=== PATIENT | female | born 1975 | race Caucasian/White ===

== ENCOUNTER → 2016-09-23 | Outpatient (CLI) | payer BC | LOC: RAD 20:06 | PROVIDERS: ATTEND Nurse Practitioner Acute Care | DX: S92.532A Displaced fracture of distal phalanx of left lesser toe(s), initial encounter for closed fracture (principal); X58.XXXA Exposure to other specified factors, initial encounter ==

== ENCOUNTER 2016-11-19 02:37 | Emergency (ER) | payer BC ==
[2016-11-19 02:45] VITALS: BP 151/100
[2016-11-19] MEDS ORDERED: OXYCODONE-ACETAMINOPHEN 5-325 MG TABLET PO ONE (03:43)
--- NOTE | 2016-11-19 03:44 | ER Document Report ---
HPI - HPI Patient complains to provider of: left upper arm Onset: Just prior to arrival Onset/Duration: Sudden Quality of pain: Achy Severity: Moderate Pain Level: 3 Context: pt presents to the ED with c/o left upper arm pain. She reports she got up to get benadryl tripped, fell back and hit her arm on the counter. Denies change in LOC. Pt is right hand dominant. Associated Symptoms: None Exacerbated by: Denies Relieved by: Denies Similar symptoms previously: No Recently seen / treated by doctor: No - REPRODUCTIVE Reproductive: DENIES: : - DERM Skin Color: Normal Past Medical History - General Information source: Patient Last Menstrual Period: hyst - Social History Smoking Status: Current Every Day Smoker Cigarette use (# per day): Yes - / ppd Chew tobacco use (# tins/day): No Smoking Education Provided: Yes Frequency of alcohol use: Occasional Drug Abuse: None Occupation: [employer] [facility] [place] Lives with: Alone Family History: Reviewed & Not Pertinent Patient has suicidal ideation: No Patient has homicidal ideation: No - Past Medical History Cardiac Medical History: Denies: Hx Heart Attack, Hx Hypertension Pulmonary Medical History: Denies: Hx Asthma, Hx Bronchitis, Hx COPD, Hx Pneumonia Neurological Medical History: Reports: Hx Cerebrovascular Accident - at , Hx Migraine. Denies: Hx Seizures Renal/ Medical History: Denies: Hx Peritoneal Dialysis GI Medical History: Reports: Hx Gastroesophageal Reflux Disease, Hx Ulcer. Denies: Hx Hiatal Hernia Musculoskeltal Medical History: Reports Hx Arthritis - right knee, Reports Hx Fibromyalgia, Reports Hx Multiple Sclerosis, Reports Hx Muscular Dystrophy Psychiatric Medical History: Reports: Hx Depression Denies: Hx Bipolar Disorder, Hx Dementia, Hx Post Traumatic Stress Disorder, Hx Schizophrenia Traumatic Medical History: Denies: Hx Fractures Past Surgical History: Reports: Hx Appendectomy, Hx Section, Hx Cholecystectomy, Hx Neurologic Surgery, Hx Tubal Ligation. Denies: Hx Hysterectomy - Immunizations Hx Diphtheria, Pertussis, Tetanus Vaccination: No - 2006 Vertical Provider Document - CONSTITUTIONAL Agree With Documented VS: Yes Exam Limitations: No Limitations General Appearance: Mild Distress - WINCES WHEN ARM PALPATED - INFECTION CONTROL TRAVEL OUTSIDE OF THE [place] IN LAST 30 DAYS: No - HEENT HEENT: Atraumatic, Normocephalic - NECK Neck: Supple - RESPIRATORY Respiratory: Breath Sounds Normal, No Respiratory Distress O2 Sat by Pulse Oximetry: 96 - CARDIOVASCULAR Cardiovascular: Regular Rate - MUSCULOSKELETAL/EXTREMETIES Musculoskeletal/Extremeties: Tender - Left upper arm ttp, no obvious deformity, no swelling, good radial pulse, brisk cap refill - NEURO Level of Consciousness: Awake, Alert, Appropriate - DERM Integumentary: Warm, Dry Adult Front & Back Diagram: 1 - c/o pain Course - Re-evaluation Re-evalutation: 11/19/16 pt instructed on neg xray, plan of care- pain med, rest/ice. She verbalized understanding. - Vital Signs Vital signs: Temp Pulse Resp BP Pulse Ox 98.7 F 96 18 151/100 H 96 11/19/16 02:42 11/19/16 02:42 11/19/16 02:42 11/19/16 02:42 11/19/16 02:42 - Diagnostic Test Radiology reviewed: Image reviewed, Reports reviewed - IMPRESSION: NEGATIVE STUDY OF THE LEFT HUMERUS. NO RADIOGRAPHIC EVIDENCE OF ACUTE INJURY. Procedures - Immobilization Left Arm Pre-Proc Neuro Vasc Exam: Normal Immobilizer type: Sling Performed by: PCT Post-Proc Neuro Vasc Exam: Unchanged from pre-exam Discharge - Discharge Clinical Impression: Left upper arm pain, Elevated blood pressure reading Condition: Stable Disposition: HOME, SELF-CARE Instructions: Ice & Elevation ([facility]), Sling as Treatment ([facility]), Oral Narcotic Medication ([facility]) Additional Instructions: *You have been evaluated for arm pain, elevated blood pressure reading *Maintain the sling for the next few days for comfort *Rest/Ice/Elevate *Follow up with orthopedics for continued pain-call for an appointment *Take medication as prescribed *Monitor your blood pressure. Your blood pressure was elevated today. This may be because you were anxious, in pain or because you need medication. It is important to follow up with your primary care provider for full evaluation. *Return to ED for worsening condition, changes, needs Forms: Elevated Blood Pressure
[2016-11-19] MEDS ORDERED: HYDROCODONE/ACETAMINOPHEN 5-325 MG 6 TAB/DSPK PO PRN (03:49)
== END 2016-11-19 03:59 | disposition home or self-care (01) ==
LOC: ER 02:37
DX: M79.622 Pain in left upper arm (principal); W01.198A Fall on same level from slipping, tripping and stumbling with subsequent striking against other object, initial encounter; Y93.89 Activity, other specified; R03.0 Elevated blood-pressure reading, without diagnosis of hypertension; F17.210 Nicotine dependence, cigarettes, uncomplicated; Z71.6 Tobacco abuse counseling
CPT/HCPCS: 99283

== ENCOUNTER → 2016-12-05 | Outpatient (CLI) | payer BC ==
[2016-12-05 15:13] LABS: URINE METHADONE SCREEN NEGATIVE; URINE OPIATES LOW NEGATIVE; URINE PHENCYCLIDINE SCREEN NEGATIVE
[2016-12-05 15:30] LABS: URINE BARBITURATES SCREEN UNCONFIRMED POSITIVE
== END ==
LOC: OD 13:07
PROVIDERS: ATTEND Nurse Practitioner Acute Care
DX: S79.911A Unspecified injury of right hip, initial encounter (principal); Y99.0 Civilian activity done for income or pay
CPT/HCPCS: 80307

== ENCOUNTER 2016-12-09 17:38 | Emergency (ER) | payer BC ==
[2016-12-09] MEDS ORDERED: ONDANSETRON 4 MG TAB.RAPDIS PO ONE (17:56)
[2016-12-09] MEDS ORDERED: IBUPROFEN 800 MG TABLET PO ONE (17:56)
--- NOTE | 2016-12-09 17:56 | ER Document Report ---
ED Medical Screen (RME) - General Chief Complaint: Fall Injury Stated Complaint: FALL,RIGHT SHOULDER,KNEE PAIN Mode of Arrival: Medic Information source: Emergency Med Personnel Notes: Patient presents to the emergency department post fall EMS. Patient reports she was up on a chair. She reports she has a left broken foot, toe and was not wearing a boot. She fell and landed on her right side. Patient is complaining of severe left lower quadrant abdominal pain which started after she fell. She reports she did not hit that side. Patient reports she thinks she lost her balance and fell. Reports she is nauseated. I have greeted and performed a rapid initial assessment of this patient. A comprehensive ED assessment and evaluation of the patient, analysis of test results and completion of the medical decision making process will be conducted by additional ED providers. TRAVEL OUTSIDE OF THE [place] IN LAST 30 DAYS: No - Related Data Allergies/Adverse Reactions: metoclopramide HCl [From Reglan] Allergy (Unknown, Verified 11/19/16 02:41) prochlorperazine edisylate [From Compazine] Allergy (Unknown, Verified 11/19/16 02:41) prochlorperazine maleate [From Compazine] Allergy (Unknown, Verified 11/19/16 02 :41) promethazine HCl [From Phenergan] Allergy (Unknown, Verified 11/19/16 02:41) morphine [Morphine] Adverse Reaction (Intermediate, Verified 11/19/16 02:41) headache Past Medical History - Past Medical History Cardiac Medical History: Denies: Hx Heart Attack, Hx Hypertension Pulmonary Medical History: Denies: Hx Asthma, Hx Bronchitis, Hx COPD, Hx Pneumonia Neurological Medical History: Reports: Hx Cerebrovascular Accident - at , Hx Migraine. Denies: Hx Seizures Renal/ Medical History: Denies: Hx Peritoneal Dialysis GI Medical History: Reports: Hx Gastroesophageal Reflux Disease, Hx Ulcer. Denies: Hx Hiatal Hernia Musculoskeltal Medical History: Reports Hx Arthritis - right knee, Reports Hx Fibromyalgia, Reports Hx Multiple Sclerosis, Reports Hx Muscular Dystrophy Psychiatric Medical History: Reports: Hx Depression Denies: Hx Bipolar Disorder, Hx Dementia, Hx Post Traumatic Stress Disorder, Hx Schizophrenia Traumatic Medical History: Denies: Hx Fractures Past Surgical History: Reports: Hx Appendectomy, Hx Section, Hx Cholecystectomy, Hx Neurologic Surgery, Hx Tubal Ligation. Denies: Hx Hysterectomy - Immunizations Hx Diphtheria, Pertussis, Tetanus Vaccination: No - 2006
[2016-12-10 03:32] LABS: ABSOLUTE EOSINOPHILS # (AUTO) 0.3 10^3/uL (0.0-0.6); ABSOLUTE LYMPHOCYTES (AUTO) 2.4 10^3/uL (0.5-4.7); ABSOLUTE MONOCYTES (AUTO) 0.5 10^3/uL (0.1-1.4); ABSOLUTE NEUT (AUTO) 2.1 10^3/uL (1.7-8.2); BASOPHILS % (AUTO) 0.4 % (0-2); EOSINOPHILS % (AUTO) 5.2 % (0-6); HEMATOCRIT 42.8 % (36.0-47.0); HEMOGLOBIN 14.3 g/dL (12.0-15.5); HGB HCT DIFFERENCE 0.1; LYMPHOCYTES % (AUTO) 44.9 % (13-45); MEAN CORPUSCULAR HEMOGLOBIN 29.9 pg (27.0-33.4); MEAN CORPUSCULAR HGB CONC 33.5 g/dL (32.0-36.0); MEAN CORPUSCULAR VOLUME 89 fl (80-97); RED CELL DISTRIBUTION WIDTH 13.5 % (11.5-14.0); SEGMENTED NEUTROPHILS % (AUTO) 39.5 % (42-78); WHITE BLOOD COUNT 5.3 10^3/uL (4.0-10.5)
[2016-12-10 03:45] LABS: ALANINE AMINOTRANSFERASE 22 U/L (9-52); ALKALINE PHOSPHATASE 105 U/L (38-126); ANION GAP 11 (5-19); ASPARTATE AMINO TRANSFERASE 25 U/L (14-36); BILIRUBIN,DIRECT 0.4 mg/dL (0.0-0.4); BILIRUBIN,TOTAL 0.8 mg/dL (0.2-1.3); BLOOD UREA NITROGEN 10 mg/dL (7-20); CALCIUM 9.5 mg/dL (8.4-10.2); CARBON DIOXIDE 21 mmol/L (22-30); CHLORIDE 110 mmol/L (98-107); CREATININE RESULT 0.66 mg/dL (0.52-1.25); GLUCOSE 98 mg/dL (75-110); POTASSIUM 4.4 mmol/L (3.6-5.0); SODIUM 142.3 mmol/L (137-145); TOTAL PROTEIN 7.3 g/dL (6.3-8.2)
--- NOTE | 2016-12-10 03:53 | ER Document Report ---
ED Fall - General Mode of Arrival: Medic Information source: Emergency Med Personnel TRAVEL OUTSIDE OF THE [place] IN LAST 30 DAYS: No - HPI Patient complains to provider of: Right hip and lower abdominal pain Occurred: This afternoon Where: Home Context: Fell from height Associated symptoms: Other - see HPI Location of injury/pain: Other - see HPI <PRAFUL RITCHIE - Last Filed: 12/10/16 05:34> <ABRAN SKY - Last Filed: 12/10/16 06:54> - General Chief Complaint: Fall, R shoulder pain, L lower abdominal pain Stated Complaint: FALL,RIGHT SHOULDER,KNEE PAIN Notes: 41 year old female presents to the ED complaining of right hip and diffuse lower abdominal pain that started at this afternoon after falling from a chair. Patient states that she was trying to grab a bag of chips on top of the refrigerator while on a chair when she lost her balance and proceeded to fall onto her left side on a wooden floor. Patient states that she hit her left shoulder, elbow, wrist, and hip. Patient explains that she broke her left toe a few months ago and was not wearing her boot while on the chair. Patient denies loss of consciousness and neck pain. (PRAFUL RITCHIE) - Related data Allergies/Adverse Reactions: metoclopramide HCl [From Reglan] Allergy (Unknown, Verified 11/19/16 02:41) prochlorperazine edisylate [From Compazine] Allergy (Unknown, Verified 11/19/16 02:41) prochlorperazine maleate [From Compazine] Allergy (Unknown, Verified 11/19/16 02 :41) promethazine HCl [From Phenergan] Allergy (Unknown, Verified 11/19/16 02:41) morphine [Morphine] Adverse Reaction (Intermediate, Verified 11/19/16 02:41) headache Past Medical History - General Information source: Emergency Med Personnel - Social History Smoking Status: Current Every Day Smoker Family History: Reviewed & Not Pertinent Patient has suicidal ideation: No Patient has homicidal ideation: No Neurological Medical History: Reports: Hx Cerebrovascular Accident - at , Hx Migraine GI Medical History: Reports: Hx Gastroesophageal Reflux Disease, Hx Ulcer Musculoskeltal Medical History: Reports Hx Arthritis - right knee, Reports Hx Fibromyalgia, Reports Hx Multiple Sclerosis, Reports Hx Muscular Dystrophy Psychiatric Medical History: Reports: Hx Depression Past Surgical History: Reports: Hx Appendectomy, Hx Section, Hx Cholecystectomy, Hx Neurologic Surgery, Hx Tubal Ligation - Immunizations Hx Diphtheria, Pertussis, Tetanus Vaccination: No - 2005 <PRAFUL RITCHIE - Last Filed: 12/10/16 05:34> Review of Systems - Review of Systems Constitutional: No symptoms reported EENT: No symptoms reported Cardiovascular: No symptoms reported Respiratory: No symptoms reported Gastrointestinal: See HPI, Abdominal pain - diffuse lower abdominal pain Genitourinary: No symptoms reported Female Genitourinary: No symptoms reported Musculoskeletal: See HPI, Joint pain - right hip pain. denies: Neck pain Skin: No symptoms reported Hematologic/Lymphatic: No symptoms reported Neurological/Psychological: No symptoms reported. denies: Lost consciousness -: Yes All other systems reviewed and negative <PRAFUL RITCHIE - Last Filed: 12/10/16 05:34> Physical Exam - General General appearance: Alert In distress: None - HEENT Head: Normocephalic, Atraumatic Eyes: Normal Extraocular movements intact: Yes Pupils: PERRL - Respiratory Respiratory status: No respiratory distress Breath sounds: Normal - Cardiovascular Rhythm: Regular Heart sounds: Normal auscultation - Abdominal Inspection: Normal - Back Back: Normal - Extremities General upper extremity: Normal inspection, Normal ROM General lower extremity: Normal ROM. No: Normal inspection - see hip exam below Hip: Tender - Right hip tenderness to palpation. Mild pelvic tenderness to palpation.. No: Normal - Neurological Neuro grossly intact: Yes Cognition: Normal Orientation: AAOx4 [place] Coma Scale Eye Opening: Spontaneous Ann Coma Scale Verbal: Oriented Ann Coma Scale Motor: Obeys Commands Ann Coma Scale Total: 15 Speech: Normal - Psychological Associated symptoms: Normal affect, Normal mood - Skin Skin Temperature: Warm Skin Moisture: Dry Skin Color: Normal <PRAFUL RITCHIE - Last Filed: 12/10/16 05:34> Course - Laboratory Result Diagrams: 12/10/16 03:15 12/10/16 03:15 <PRAFUL RITCHIE - Last Filed: 12/10/16 05:34> - Laboratory Result Diagrams: 12/10/16 03:15 12/10/16 03:15 <ABRAN SKY - Last Filed: 12/10/16 06:54> - Re-evaluation Re-evalutation: 12/10/16 Patient with no evidence for injury from fall. Patient does however have a pretty nasty urinary tract infection. Patient will be treated with peridium Rocephin and discharged home with Keflex. Urine culture sent. Patient now admits to dysuria. Patient will be discharged home and is to follow-up with her doctor. Understands and agrees with plan. Grateful for care. Stable for discharge. (ABRAN SKY) - Vital Signs Vital signs: Temp Pulse Resp BP Pulse Ox 87 16 145/107 H 97 12/10/16 06:09 12/10/16 06:09 12/10/16 06:09 12/10/16 06:09 - Laboratory Laboratory results interpreted by me: 12/10/16 12/10/16 12/10/16 03:15 03:15 04:30 Seg Neutrophils % 39.5 L Chloride 110 H Carbon Dioxide 21 L Urine Protein 30 H Urine Ketones TRACE H Urine Nitrite POSITIVE H Urine Bilirubin SMALL H Ur Leukocyte Esterase MODERATE H Discharge <PRAFUL RITCHIE - Last Filed: 12/10/16 05:34> <ABRAN SKY - Last Filed: 12/10/16 06:54> - Discharge Clinical Impression: Fall Qualifiers: Encounter type: initial encounter Qualified Code(s): W19.XXXA - Unspecified fall, initial encounter Hip pain Qualifiers: Laterality: right Qualified Code(s): M25.551 - Pain in right hip UTI (urinary tract infection) Qualifiers: Urinary tract infection type: site unspecified Hematuria presence: without hematuria Qualified Code(s): N39.0 - Urinary tract infection, site not specified Condition: Stable Disposition: HOME, SELF-CARE Instructions: Abdominal Pain ([facility]), Contusion ([facility]), Ice Packs ([facility]), Urinary Tract Infection ([facility]) Prescriptions: Cephalexin Monohydrate [Keflex 500 mg Capsule] 500 mg PO QID #28 capsule Phenazopyridine HCl [Pyridium 100 Mg Tablet] 100 mg PO TID 3 Days Scribe Attestation: 12/10/16 06:54 I personally performed the services described in the documentation, reviewed and edited the documentation which was dictated to the scribe in my presence, and it accurately records my words and actions. (ABRAN SKY) Scribe Documentation - Scribe Written by Scribe:: Gonzalo Poole, 12/10/2016 0431 acting as scribe for :: Maira <PRAFUL RITCHIE - Last Filed: 12/10/16 05:34>
[2016-12-10] MEDS ORDERED: ONDANSETRON 4 MG TAB.RAPDIS PO ONE (04:22)
[2016-12-10] MEDS ORDERED: OXYCODONE-ACETAMINOPHEN 5-325 MG TABLET PO ONE (04:22)
[2016-12-10] MEDS ORDERED: HYDROCODONE/ACETAMINOPHEN 5-325 MG 6 TAB/DSPK PO PRN (05:07)
[2016-12-10] MEDS ORDERED: ONDANSETRON ODT 4 MG TAB (6 TAB/DSPK) PO PRN (05:11)
[2016-12-10 05:21] LABS: APPEARANCE,URINE SLIGHTLY-CLOUDY; BILIRUBIN,URINE SMALL (NEGATIVE); GLUCOSE, URINE NEGATIVE (NEGATIVE); KETONES,URINE TRACE mg/dL (NEGATIVE); LEUKOCYTE ESTERASE,URINE MODERATE (NEGATIVE); NITRITE,URINE POSITIVE (NEGATIVE); PROTEIN,URINE 30 mg/dL (NEGATIVE); URINE SPECIFIC GRAVITY 1.024; UROBILINOGEN,URINE NEGATIVE mg/dL (<2.0)
[2016-12-10] MEDS ORDERED: LIDOCAINE 1% INJ-PF (10 MG/ML) 30 ML SDV INJ ONE (05:29)
[2016-12-10] MEDS ORDERED: CEFTRIAXONE INJ 1000 MG VIAL IM ONE (05:29)
[2016-12-10] MEDS ORDERED: PHENAZOPYRIDINE HCL 200 MG TABLET PO ONE (05:30)
[2016-12-10 06:10] VITALS: BP 145/107
== END 2016-12-10 06:09 | disposition home or self-care (01) ==
LOC: ER 17:38
DX: M25.551 Pain in right hip (principal); N39.0 Urinary tract infection, site not specified; M25.511 Pain in right shoulder; R10.30 Lower abdominal pain, unspecified; W07.XXXA Fall from chair, initial encounter; Y92.009 Unspecified place in unspecified non-institutional (private) residence as the place of occurrence of the external cause; F17.200 Nicotine dependence, unspecified, uncomplicated; Z86.73 Personal history of transient ischemic attack (TIA), and cerebral infarction without residual deficits; K21.9 Gastro-esophageal reflux disease without esophagitis; M79.7 Fibromyalgia; Z90.49 Acquired absence of other specified parts of digestive tract; Z98.51 Tubal ligation status
CPT/HCPCS: 99284; 96372; 36415; 87086; 85025; 87088; 80053; 81001; 87186; 73502; S0119 ×2; J3490 ×2; J0696

== ENCOUNTER 2017-01-09 08:10 | Emergency (ER) | payer BC ==
[2017-01-09] MEDS ORDERED: HALOPERIDOL LACTATE INJ 5 MG/1 ML VIAL IV ONE ×2 (08:49→11:17)
[2017-01-09] MEDS ORDERED: NORMAL SALINE 1000 ML 1,000 ML IV ONE (08:49)
[2017-01-09] MEDS ORDERED: DEXAMETHASONE SOD PHOS INJ 10 MG/1 ML VIAL IV ONE (08:50)
[2017-01-09] MEDS ORDERED: KETOROLAC TROMETHAMINE INJ/PF 30 MG/1 ML SDV IV ONE (11:17)
--- NOTE | 2017-01-09 11:58 | ER Document Report ---
ED Headache - General Chief Complaint: Headache Stated Complaint: HEADACHE TRAVEL OUTSIDE OF THE [place] IN LAST 30 DAYS: No - HPI Notes: Patient coming in complaining of a migraine headache. Patient states that she used to see a neurologist however they were not helping her therefore she stopped seen neurology a long time ago. 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 Patient states headache normal for her or change in characteristic. Patient denies any recent head trauma denies any travel denies any antibiotics. Patient is alert oriented sitting up moving all 4 extremities dissipating in the nursing assessment upon my entrance into the examination room. - Related Data Allergies/Adverse Reactions: metoclopramide HCl [From Reglan] Allergy (Unknown, Verified 01/09/17 08:11) prochlorperazine edisylate [From Compazine] Allergy (Unknown, Verified 01/09/17 08:11) prochlorperazine maleate [From Compazine] Allergy (Unknown, Verified 01/09/17 08 :11) promethazine HCl [From Phenergan] Allergy (Unknown, Verified 01/09/17 08:11) morphine [Morphine] Adverse Reaction (Intermediate, Verified 01/09/17 08:11) headache Past Medical History - Social History Smoking Status: Current Every Day Smoker Chew tobacco use (# tins/day): No Frequency of alcohol use: Rare Drug Abuse: None Family History: Reviewed & Not Pertinent Patient has suicidal ideation: No Patient has homicidal ideation: No - Past Medical History Cardiac Medical History: Denies: Hx Heart Attack, Hx Hypertension Pulmonary Medical History: Denies: Hx Asthma, Hx Bronchitis, Hx COPD, Hx Pneumonia Neurological Medical History: Reports: Hx Cerebrovascular Accident - at , Hx Migraine. Denies: Hx Seizures Renal/ Medical History: Denies: Hx Peritoneal Dialysis GI Medical History: Reports: Hx Gastroesophageal Reflux Disease, Hx Ulcer. Denies: Hx Hiatal Hernia Musculoskeltal Medical History: Reports Hx Arthritis - right knee, Reports Hx Fibromyalgia, Reports Hx Multiple Sclerosis, Reports Hx Muscular Dystrophy Psychiatric Medical History: Reports: Hx Depression Denies: Hx Bipolar Disorder, Hx Dementia, Hx Post Traumatic Stress Disorder, Hx Schizophrenia Traumatic Medical History: Denies: Hx Fractures Past Surgical History: Reports: Hx Appendectomy, Hx Section, Hx Cholecystectomy, Hx Neurologic Surgery, Hx Tubal Ligation. Denies: Hx Hysterectomy - Immunizations Hx Diphtheria, Pertussis, Tetanus Vaccination: No - 2005 Review of Systems - Review of Systems Constitutional: No symptoms reported EENT: No symptoms reported Cardiovascular: No symptoms reported Respiratory: No symptoms reported Gastrointestinal: No symptoms reported Genitourinary: No symptoms reported Female Genitourinary: No symptoms reported Musculoskeletal: No symptoms reported Skin: No symptoms reported Hematologic/Lymphatic: No symptoms reported Neurological/Psychological: Headaches Physical Exam - Vital signs Vitals: Temp Pulse Resp BP Pulse Ox 97.8 F 108 H 16 139/99 H 100 01/09/17 08:12 01/09/17 08:12 01/09/17 08:12 01/09/17 08:12 01/09/17 08:12 Interpretation: Normal - General General appearance: Appears well, Alert - HEENT Head: Normocephalic, Atraumatic Eyes: Normal Pupils: PERRL - Respiratory Respiratory status: No respiratory distress Chest status: Nontender Breath sounds: Normal Chest palpation: Normal - Cardiovascular Rhythm: Regular Heart sounds: Normal auscultation Murmur: No - Abdominal Inspection: Normal Distension: No distension Bowel sounds: Normal Tenderness: Nontender Organomegaly: No organomegaly - Back Back: Normal, Nontender - Extremities General upper extremity: Normal inspection, Nontender, Normal color, Normal ROM , Normal temperature General lower extremity: Normal inspection, Nontender, Normal color, Normal ROM , Normal temperature, Normal weight bearing. No: Cristine's sign - Neurological Neuro grossly intact: Yes Cognition: Normal Orientation: AAOx4 [place] Coma Scale Eye Opening: Spontaneous [place] Coma Scale Verbal: Oriented Ann Coma Scale Motor: Obeys Commands [place] Coma Scale Total: 15 Speech: Normal Motor strength normal: LUE, RUE, LLE, RLE Sensory: Normal - Psychological Associated symptoms: Normal affect, Normal mood - Skin Skin Temperature: Warm Skin Moisture: Dry Skin Color: Normal Course - Re-evaluation Re-evalutation: 01/09/17 14:49 The patient presents with headache without signs of [employer] bleed, stroke, infection , or other serious etiology. The patient is neurologically intact. Given the extremely low risk of these diagnoses further testing and evaluation for these possibilities does not appear to be indicated at this time. The patient has been instructed to return if the symptoms worsen or change in any way.. Upon evaluation patient sleeping. Patient will be discharged patient seen to received good relief with Haldol Decadron - Vital Signs Vital signs: Temp Pulse Resp BP Pulse Ox 97.7 F 63 18 108/69 99 01/09/17 12:59 01/09/17 12:59 01/09/17 12:59 01/09/17 12:59 01/09/17 12:59 Discharge - Discharge Clinical Impression: Migraine Qualifiers: Migraine type: unspecified Status migrainosus presence: without status migrainosus Intractability: not intractable Qualified Code(s): G43.909 - Migraine, unspecified, not intractable, without status migrainosus Condition: Good Disposition: HOME, SELF-CARE Instructions: Migraine Headache ([facility]), Neurologist Additional Instructions: I would highly recommend following up with a neurologist. Return to the ER if symptoms worsen. Please drink plenty of water Prescriptions: Ondansetron [Zofran Odt 4 mg Tablet] 1 - 2 tab PO Q4HP PRN #10 tab.rapdis PRN Reason: Referrals: MONROE RITCHIE MD [Primary Care Provider] - Follow up in 3-5 days
[2017-01-09 13:05] VITALS: BP 108/69
== END 2017-01-09 13:05 | disposition home or self-care (01) ==
LOC: ER 08:10
DX: G43.909 Migraine, unspecified, not intractable, without status migrainosus (principal); F17.200 Nicotine dependence, unspecified, uncomplicated
CPT/HCPCS: 96376; 99283; 96361; 96374; 96375; J1630; J1885; J7030; J1100

== ENCOUNTER 2017-01-29 21:20 | Emergency (ER) | payer BC ==
[2017-01-30] MEDS ORDERED: OXYCODONE-ACETAMINOPHEN 5-325 MG TABLET PO ONE (04:10)
--- NOTE | 2017-01-30 04:16 | ER Document Report ---
ED Fall - General Chief Complaint: Fall Injury Stated Complaint: FALL/RIGHT SIDE PAIN Time Seen by Provider: 01/30/17 04:01 Notes: Patient is a 41-year-old female who comes emergency department for chief complaint of fall injury, she states that she stubbed her toe and then fell into a garden bucket this afternoon. Patient states that she hurts in her right hip/groin area, her right elbow, and her right shoulder. She denies head or neck injury. She denies loss of consciousness. She denies any abdominal, flank, chest pain. She is not on a blood thinner. TRAVEL OUTSIDE OF THE [place] IN LAST 30 DAYS: No - Related data Allergies/Adverse Reactions: metoclopramide HCl [From Reglan] Allergy (Unknown, Verified 01/30/17 05:09) prochlorperazine edisylate [From Compazine] Allergy (Unknown, Verified 01/30/17 05:09) prochlorperazine maleate [From Compazine] Allergy (Unknown, Verified 01/30/17 05 :09) promethazine HCl [From Phenergan] Allergy (Unknown, Verified 01/30/17 05:09) morphine [Morphine] Adverse Reaction (Intermediate, Verified 01/30/17 05:09) headache Past Medical History - General Information source: Patient - Social History Smoking Status: Never Smoker Drug Abuse: None Lives with: Family Family History: Reviewed & Not Pertinent Patient has suicidal ideation: No Patient has homicidal ideation: No - Past Medical History Cardiac Medical History: Denies: Hx Heart Attack, Hx Hypertension Pulmonary Medical History: Denies: Hx Asthma, Hx Bronchitis, Hx COPD, Hx Pneumonia Neurological Medical History: Reports: Hx Cerebrovascular Accident - at , Hx Migraine. Denies: Hx Seizures Renal/ Medical History: Denies: Hx Peritoneal Dialysis GI Medical History: Reports: Hx Gastroesophageal Reflux Disease, Hx Ulcer. Denies: Hx Hiatal Hernia Musculoskeltal Medical History: Reports Hx Arthritis - right knee, Reports Hx Fibromyalgia, Reports Hx Multiple Sclerosis, Reports Hx Muscular Dystrophy Psychiatric Medical History: Reports: Hx Depression Denies: Hx Bipolar Disorder, Hx Dementia, Hx Post Traumatic Stress Disorder, Hx Schizophrenia Traumatic Medical History: Denies: Hx Fractures Past Surgical History: Reports: Hx Appendectomy, Hx Section, Hx Cholecystectomy, Hx Neurologic Surgery, Hx Tubal Ligation. Denies: Hx Hysterectomy - Immunizations Hx Diphtheria, Pertussis, Tetanus Vaccination: No - 2005 Review of Systems - Review of Systems Constitutional: No symptoms reported EENT: No symptoms reported Cardiovascular: No symptoms reported Respiratory: No symptoms reported Gastrointestinal: No symptoms reported Genitourinary: No symptoms reported Female Genitourinary: No symptoms reported Musculoskeletal: See HPI Skin: No symptoms reported Hematologic/Lymphatic: No symptoms reported Neurological/Psychological: No symptoms reported Physical Exam - Vital signs Vitals: Temp Pulse Resp BP Pulse Ox 98.9 F 86 18 137/103 H 99 01/29/17 21:26 01/29/17 21:26 01/29/17 21:26 01/29/17 21:01/29/17 21:26 Interpretation: Normal - General General appearance: Appears well In distress: None - HEENT Head: Normocephalic, Atraumatic Eyes: Normal Conjunctiva: Normal Eyelashes: Normal Pupils: PERRL Mucous membranes: Normal Pharynx: Normal Neck: Normal - Respiratory Respiratory status: No respiratory distress Chest status: Nontender Breath sounds: Normal. No: Decreased air movement, Wheezing Chest palpation: Normal - Cardiovascular Rhythm: Regular Heart sounds: Normal auscultation Murmur: No - Abdominal Inspection: Normal Distension: No distension Bowel sounds: Normal Tenderness: Nontender. No: Tender, Guarding Organomegaly: No organomegaly - Back Back: Normal, Nontender. No: Tender - Completely unremarkable back exam with no evidence of injury, no midline tenderness, normal distal neurovascular exam - Extremities General upper extremity: Other - General pain with palpation over the right shoulder, full range of motion. General pain with palpation with small scrapes over the elbow, full range of motion, normal upper extremity exam otherwise General lower extremity: Other - Tenderness over the right femoral bursa area and extending over the right anterior thigh, full range of motion of the hip, normal lower extremity exam otherwise. No: Cristine's sign - Neurological Neuro grossly intact: Yes Cognition: Normal Orientation: AAOx4 [place] Coma Scale Eye Opening: Spontaneous Ann Coma Scale Verbal: Oriented Ann Coma Scale Motor: Obeys Commands Ann Coma Scale Total: 15 Speech: Normal Motor strength normal: LUE, RUE, LLE, RLE Sensory: Normal - Psychological Associated symptoms: Normal affect, Normal mood - Skin Skin Temperature: Warm Skin Moisture: Dry Skin Color: Normal Course - Re-evaluation Re-evalutation: There is a small scraped area over the right elbow with superficial bruising, no open skin or bleeding, normal range of motion. Shoulder and hip exam are unremarkable. Full range of motion of all extremities. Patient able to sit in style without any discomfort. X-rays reviewed and all are negative for any acute abnormality. Treating for muscular strain/contusion, discussed primary care follow-up, discussed return precautions, patient states understanding and agreement. - Vital Signs Vital signs: Temp Pulse Resp BP Pulse Ox 97.7 F 76 14 129/86 H 97 01/30/17 04:50 01/30/17 04:50 01/30/17 04:50 01/30/17 04:50 01/30/17 04:50 Discharge - Discharge Clinical Impression: Right hip pain, Right elbow pain Fall Qualifiers: Encounter type: initial encounter Qualified Code(s): W19.XXXA - Unspecified fall, initial encounter Right shoulder pain Qualifiers: Chronicity: acute Qualified Code(s): M25.511 - Pain in right shoulder Elbow abrasion Qualifiers: Encounter type: initial encounter Laterality: right Qualified Code(s): S50.311A - Abrasion of right elbow, initial encounter Condition: Stable Disposition: HOME, SELF-CARE Additional Instructions: X-ray imaging shows no fractures, evaluation is consistent with soft tissue injury and sprain apply ice to her shoulder, elbow, and hip 3-4 times daily for 10-15 minutes if possible. Rest. Take the naproxen and Robaxin as directed, take the Ultracet if needed. Follow-up with primary care. Return to the emergency department for any concerning symptoms. Prescriptions: Methocarbamol [Robaxin 750 mg Tablet] 750 mg PO Q6 #20 tablet Naproxen 500 mg PO BID #20 tablet Tramadol HCl/Acetaminophen [Ultracet 37.5 mg/325 mg Tablet] 1 each PO ASDIR PRN #20 tablet PRN Reason: Forms: Return to Work
[2017-01-30 04:58] VITALS: BP 129/86
== END 2017-01-30 04:55 | disposition home or self-care (01) ==
LOC: ER 21:20
DX: S50.311A Abrasion of right elbow, initial encounter (principal); M25.551 Pain in right hip; M25.511 Pain in right shoulder; W18.30XA Fall on same level, unspecified, initial encounter; Z88.6 Allergy status to analgesic agent; Z86.73 Personal history of transient ischemic attack (TIA), and cerebral infarction without residual deficits; K21.9 Gastro-esophageal reflux disease without esophagitis; Z90.49 Acquired absence of other specified parts of digestive tract; Z98.51 Tubal ligation status
CPT/HCPCS: 99284

== ENCOUNTER 2017-02-07 18:04 | Emergency (ER) | payer BC ==
[2017-02-07] MEDS ORDERED: OXYCODONE-ACETAMINOPHEN 5-325 MG TABLET PO ONE (18:28)
[2017-02-07] MEDS ORDERED: KETOROLAC TROMETHAMINE 60 MG/2 ML SDV IM ONE (18:31)
--- NOTE | 2017-02-07 18:31 | ER Document Report ---
ED Medical Screen (RME) - General Chief Complaint: Urinary Problem Stated Complaint: POSSIBLE UTI Time Seen by Provider: 02/07/17 18:24 Mode of Arrival: Ambulatory Information source: Patient TRAVEL OUTSIDE OF THE [place] IN LAST 30 DAYS: No - HPI Patient complains to provider of: Dysuria, odorous urine, flank pain Onset: Other - 2 Months Onset/Duration: Waxing and waning Quality of pain: Achy, Burning, Sharp, Stabbing Severity: Moderate Pain Level: 4 Associated Symptoms: Dysuria Exacerbated by: Denies Relieved by: Denies Similar symptoms previously: Yes Recently seen / treated by doctor: Yes Notes: 02/07/17 18:30 Patient is a 41-year-old female who presents to the emergency room complaining of persistent dysuria with odorous urine and now flank pain symptoms have been going on for the past 2 months and worsening, she has been on for 5 different courses of antibiotics, today she developed lip swelling, she is currently taking Bactrim, she is concerned that she developed an allergic reaction, she also had a similar reaction when taking Macrobid - Related Data Allergies/Adverse Reactions: metoclopramide HCl [From Reglan] Allergy (Unknown, Verified 02/07/17 18:17) prochlorperazine edisylate [From Compazine] Allergy (Unknown, Verified 02/07/17 18:17) prochlorperazine maleate [From Compazine] Allergy (Unknown, Verified 02/07/17 18 :17) promethazine HCl [From Phenergan] Allergy (Unknown, Verified 02/07/17 18:17) morphine [Morphine] Adverse Reaction (Intermediate, Verified 02/07/17 18:17) headache Past Medical History - Social History Chew tobacco use (# tins/day): No Frequency of alcohol use: None Drug Abuse: None - Past Medical History Cardiac Medical History: Denies: Hx Heart Attack, Hx Hypertension Pulmonary Medical History: Denies: Hx Asthma, Hx Bronchitis, Hx COPD, Hx Pneumonia Neurological Medical History: Reports: Hx Cerebrovascular Accident - at , Hx Migraine. Denies: Hx Seizures Renal/ Medical History: Denies: Hx Peritoneal Dialysis GI Medical History: Reports: Hx Gastroesophageal Reflux Disease, Hx Ulcer. Denies: Hx Hiatal Hernia Musculoskeltal Medical History: Reports Hx Arthritis - right knee, Reports Hx Fibromyalgia, Reports Hx Multiple Sclerosis, Reports Hx Muscular Dystrophy Psychiatric Medical History: Reports: Hx Depression Denies: Hx Bipolar Disorder, Hx Dementia, Hx Post Traumatic Stress Disorder, Hx Schizophrenia Traumatic Medical History: Denies: Hx Fractures Past Surgical History: Reports: Hx Appendectomy, Hx Section, Hx Cholecystectomy, Hx Hysterectomy, Hx Neurologic Surgery, Hx Tubal Ligation - Immunizations Hx Diphtheria, Pertussis, Tetanus Vaccination: - 2005 Physical Exam - Vital signs Vitals: Temp Pulse Resp BP Pulse Ox 98.3 F 102 H 18 142/92 H 98 02/07/17 18:17 02/07/17 18:17 02/07/17 18:17 02/07/17 18:17 02/07/17 18:17 Course - Vital Signs Vital signs: Temp Pulse Resp BP Pulse Ox 98.3 F 102 H 18 142/92 H 98 02/07/17 18:17 02/07/17 18:17 02/07/17 18:17 02/07/17 18:17 02/07/17 18:17
[2017-02-07 19:03] LABS: ABSOLUTE EOSINOPHILS # (AUTO) 0.5 10^3/uL (0.0-0.6); ABSOLUTE LYMPHOCYTES (AUTO) 1.8 10^3/uL (0.5-4.7); ABSOLUTE MONOCYTES (AUTO) 0.4 10^3/uL (0.1-1.4); ABSOLUTE NEUT (AUTO) 2.2 10^3/uL (1.7-8.2); BASOPHILS % (AUTO) 0.5 % (0-2); EOSINOPHILS % (AUTO) 10.1 % (0-6); HEMOGLOBIN 13.6 g/dL (12.0-15.5); HGB HCT DIFFERENCE -0.2; LYMPHOCYTES % (AUTO) 37.2 % (13-45); MEAN CORPUSCULAR HEMOGLOBIN 30.5 pg (27.0-33.4); MEAN CORPUSCULAR HGB CONC 33.1 g/dL (32.0-36.0); MEAN CORPUSCULAR VOLUME 92 fl (80-97); MONOCYTES % (AUTO) 8.3 % (3-13); RED BLOOD COUNT 4.45 10^6/uL (3.72-5.28); RED CELL DISTRIBUTION WIDTH 14.2 % (11.5-14.0); SEGMENTED NEUTROPHILS % (AUTO) 43.9 % (42-78); WHITE BLOOD COUNT 4.9 10^3/uL (4.0-10.5)
[2017-02-07 19:16] LABS: ALANINE AMINOTRANSFERASE 28 U/L (9-52); ALBUMIN 3.9 g/dL (3.5-5.0); ALKALINE PHOSPHATASE 112 U/L (38-126); ANION GAP 10 (5-19); ASPARTATE AMINO TRANSFERASE 29 U/L (14-36); BILIRUBIN,DIRECT 0.5 mg/dL (0.0-0.4); BILIRUBIN,TOTAL 0.5 mg/dL (0.2-1.3); BLOOD UREA NITROGEN 11 mg/dL (7-20); CALCIUM 9.7 mg/dL (8.4-10.2); CARBON DIOXIDE 21 mmol/L (22-30); CHLORIDE 111 mmol/L (98-107); CREATININE RESULT 0.95 mg/dL (0.52-1.25); GLUCOSE 113 mg/dL (75-110); LIPASE 183.6 U/L (23-300); POTASSIUM 4.5 mmol/L (3.6-5.0); SODIUM 141.6 mmol/L (137-145); TOTAL PROTEIN 6.9 g/dL (6.3-8.2)
[2017-02-07 19:22] LABS: APPEARANCE,URINE CLOUDY; BILIRUBIN,URINE NEGATIVE (NEGATIVE); GLUCOSE, URINE NEGATIVE (NEGATIVE); KETONES,URINE NEGATIVE (NEGATIVE); LEUKOCYTE ESTERASE,URINE MODERATE (NEGATIVE); NITRITE,URINE POSITIVE (NEGATIVE); PROTEIN,URINE NEGATIVE (NEGATIVE); URINE SPECIFIC GRAVITY 1.014; UROBILINOGEN,URINE NEGATIVE mg/dL (<2.0)
[2017-02-07] MEDS ORDERED: ONDANSETRON 4 MG TAB.RAPDIS PO ONE (19:26)
[2017-02-07] MEDS ORDERED: MORPHINE SULFATE IR 15 MG TABLET PO ONE (19:26)
--- NOTE | 2017-02-07 19:33 | RADIOLOGY REPORT (SQ) ---
EXAM DESCRIPTION: CT LTD RENAL STONE PROTOCOL ON COMPLETED DATE/TIME: 02/07/2017 7:07 pm REASON FOR STUDY: flank pain COMPARISON: None. TECHNIQUE: CT scan of the abdomen and pelvis performed without intravenous or oral contrast. Images reviewed with lung, soft tissue, and bone windows. Reconstructed coronal and sagittal MPR images revi ewed. All images stored on PACS. All CT scanners at this facility use dose modulation, iterative reconstruction, and/or weight based d osing when appropriate to reduce radiation dose to as low as reasonably achievable (ALARA). [facility]: Dose Right [facility]: CareDose [facility]: Dose Right [facility]: Teradose 4D [facility]: [employer] RADIATION DOSE: 8.41mGy. LIMITATIONS: None. FINDINGS: LOWER CHEST: No significant findings. No nodules or infiltrates. NON-CONTRASTED LIVER, SPLEEN, ADRENALS: Evaluation limited by lack of IV contrast. No identified sign ificant masses. PANCREAS: No masses. No peripancreatic inflammatory changes. GALLBLADDER: Surgically absent. RIGHT KIDNEY AND URETER: No suspicious masses. Assessment limited by lack of IV contrast. No signif icant calcifications. No hydronephrosis or hydroureter. LEFT KIDNEY AND URETER: No suspicious masses. Assessment limited by lack of IV contrast. No signifi cant calcifications. No hydronephrosis or hydroureter. AORTA AND RETROPERITONEUM: No aneurysm. No retroperitoneal masses or adenopathy. BOWEL AND PERITONEAL CAVITY: No obvious masses or inflammatory changes. No free fluid. APPENDIX: Surgically absent. PELVIS, BLADDER, AND ABDOMINAL WALL:Status post hysterectomy. No abnormal masses. No free fluid. Cale dder normal. BONES: No significant findings. OTHER: No other significant finding. IMPRESSION: NO SIGNIFICANT OR ACUTE PROCESS IN THE ABDOMEN OR PELVIS. TECHNICAL DOCUMENTATION: JOB ID: [id number] Quality ID # [id number]: Final reports with documentation of one or more dose reduction techniques (e.g., Au tomated exposure control, adjustment of the mA and/or kV according to patient size, use of iterative reconstruction technique) 2010 [employer]- All Rights Reserved
[2017-02-07] MEDS ORDERED: LIDOCAINE 1% INJ-PF (10 MG/ML) 30 ML SDV INFIL ONE (19:41)
[2017-02-07] MEDS ORDERED: CEFTRIAXONE INJ 1000 MG VIAL IM ONE (19:41)
[2017-02-07] MEDS ORDERED: HYDROMORPHONE HCL INJ/PF 2 MG/ML AMPULE IM ONE (19:55)
--- NOTE | 2017-02-07 19:56 | ER Document Report ---
ED General - General Chief Complaint: Urinary Problem Stated Complaint: POSSIBLE UTI Time Seen by Provider: 02/07/17 18:24 Mode of Arrival: Ambulatory Notes: Patient is a 41-year-old female who presents with suprapubic abdominal pain as well as right flank pain that has been ongoing for the past 2 months. Patient states that she was diagnosed with a urinary tract infection back in November and has had 3 different rounds of antibiotics without resolution of her symptoms. Does describe pain in the affected areas as a dull, constant, aching pain. Nothing improves or worsens her pain. She denies any associated fever, nausea or vomiting. No history of similar symptoms in the past. TRAVEL OUTSIDE OF THE [place] IN LAST 30 DAYS: No - Related Data Allergies/Adverse Reactions: metoclopramide HCl [From Reglan] Allergy (Unknown, Verified 02/07/17 18:17) prochlorperazine edisylate [From Compazine] Allergy (Unknown, Verified 02/07/17 18:17) prochlorperazine maleate [From Compazine] Allergy (Unknown, Verified 02/07/17 18 :17) promethazine HCl [From Phenergan] Allergy (Unknown, Verified 02/07/17 18:17) Past Medical History - General Information source: Patient - Social History Smoking Status: Never Smoker Chew tobacco use (# tins/day): No Frequency of alcohol use: None Drug Abuse: None Lives with: Spouse/Significant other Family History: Reviewed & Not Pertinent Patient has suicidal ideation: No Patient has homicidal ideation: No - Past Medical History Cardiac Medical History: Denies: Hx Heart Attack, Hx Hypertension Pulmonary Medical History: Denies: Hx Asthma, Hx Bronchitis, Hx COPD, Hx Pneumonia Neurological Medical History: Reports: Hx Cerebrovascular Accident - at , Hx Migraine. Denies: Hx Seizures Renal/ Medical History: Denies: Hx Peritoneal Dialysis GI Medical History: Reports: Hx Gastroesophageal Reflux Disease, Hx Ulcer. Denies: Hx Hiatal Hernia Musculoskeltal Medical History: Reports Hx Arthritis - right knee, Reports Hx Fibromyalgia, Reports Hx Multiple Sclerosis, Reports Hx Muscular Dystrophy Psychiatric Medical History: Reports: Hx Depression Denies: Hx Bipolar Disorder, Hx Dementia, Hx Post Traumatic Stress Disorder, Hx Schizophrenia Traumatic Medical History: Denies: Hx Fractures Past Surgical History: Reports: Hx Appendectomy, Hx Section, Hx Cholecystectomy, Hx Hysterectomy, Hx Neurologic Surgery, Hx Tubal Ligation - Immunizations Hx Diphtheria, Pertussis, Tetanus Vaccination: No - 2005 Review of Systems - Review of Systems Notes: Constitutional: Negative for fever. HENT: Negative for sore throat. Eyes: Negative for visual changes. Cardiovascular: Negative for chest pain. Respiratory: Negative for shortness of breath. Gastrointestinal: Positive for suprapubic abdominal pain and right flank pain. Genitourinary: Positive for dysuria. Musculoskeletal: Negative for back pain. Skin: Negative for rash. Neurological: Negative for headaches, weakness or numbness. 10 point ROS negative except as marked above and in HPI. Physical Exam - Vital signs Vitals: Temp Pulse Resp BP Pulse Ox 98.3 F 102 H 18 142/92 H 98 02/07/17 18:17 02/07/17 18:17 02/07/17 18:17 02/07/17 18:17 02/07/17 18:17 Interpretation: Hypertensive, Tachycardic Notes: PHYSICAL EXAMINATION: GENERAL: Well-appearing, well-nourished and in no acute distress. HEAD: Atraumatic, normocephalic. EYES: Pupils equal round and reactive to light, extraocular movements intact, sclera anicteric, conjunctiva are normal. ENT: nares patent, oropharynx clear without exudates. Moist mucous membranes. NECK: Normal range of motion, supple without lymphadenopathy LUNGS: Breath sounds clear to auscultation bilaterally and equal. No wheezes rales or rhonchi. HEART: Regular rate and rhythm without murmurs ABDOMEN: Soft, suprapubic tenderness on palpation, normoactive bowel sounds. No guarding, no rebound. No masses appreciated. Right CVA tenderness. EXTREMITIES: Normal range of motion, no pitting or edema. No cyanosis. NEUROLOGICAL: No focal neurological deficits. Moves all extremities spontaneously and on command. PSYCH: Normal mood, normal affect. SKIN: Warm, Dry, normal turgor, no rashes or lesions noted. Course - Re-evaluation Re-evalutation: 02/07/17 19:53 Presentation is most consistent with acute pyelonephritis. Laboratories do demonstrate a large amount of white blood cells in the urine as well as bacteria. Patient has had constitutional symptoms at home as well as a fever. CVA tenderness is present on exam. The remainder laboratories are relatively unremarkable without evidence of renal dysfunction. I do not suspect an acute appendicitis, biliary pathology, pancreatitis, intra-abdominal abscess, or tubo- ovarian abscess based on history and examination. Patient has been given a dose of IM ceftriaxone. Patient is able to tolerate oral intake without difficulty. Will be discharged home on 7 day course of cephalexin. A urine culture has been sent. Strict return precautions and follow-up recommendations have been discussed at length. - Vital Signs Vital signs: Temp Pulse Resp BP Pulse Ox 98.3 F 72 20 127/82 H 97 02/07/17 20:07 02/07/17 20:07 02/07/17 20:07 02/07/17 20:07 02/07/17 20:07 - Laboratory Result Diagrams: 02/07/17 18:50 02/07/17 18:50 Laboratory results interpreted by me: 02/07/17 02/07/17 02/07/17 18:50 18:50 18:58 RDW 14.2 H Eosinophils % 10.1 H Chloride 111 H Carbon Dioxide 21 L Glucose 113 H Direct Bilirubin 0.5 H Urine Nitrite POSITIVE H Ur Leukocyte Esterase MODERATE H - Diagnostic Test Radiology reviewed: Reports reviewed Discharge - Discharge Clinical Impression: Pyelonephritis Condition: Good Disposition: HOME, SELF-CARE Additional Instructions: You have been diagnosed with a condition called pyelonephritis which is an infection involving your kidneys and bladder. You have been given a dose of antibiotics here in the emergency department to help begin to treat this infection. Your also being sent home on antibiotics. Please start taking these later on today when you fill the prescription. Complete the course even if you feel better. Please return if you have persistent vomiting, pass out, have worsening pain, become unable to tolerate fluids, or have any other symptoms that are concerning to you. Please follow-up with your primary care physician in the next 24-48 hours. Prescriptions: Cephalexin Monohydrate [Keflex 500 mg Capsule] 500 mg PO QID #28 capsule Referrals: ANABELLE HAMMOND PA-C [Primary Care Provider] - Follow up as needed
[2017-02-07 20:13] VITALS: BP 127/82
== END 2017-02-07 20:12 | disposition home or self-care (01) ==
LOC: ER 18:04
DX: N12 Tubulo-interstitial nephritis, not specified as acute or chronic (principal); R39.198 Other difficulties with micturition; R10.9 Unspecified abdominal pain
CPT/HCPCS: 99284; 96372; 36415; 87086; 83690; 85025; 87088; 80053; 81001; 87186; 76380; J1885; S0119; J3490; J1170; J0696